=== PATIENT | male | born 1960 | race Caucasian/White ===

== ENCOUNTER 2016-09-19 19:00 | Inpatient (IN) | payer OTHER ==
--- NOTE | ~2016-09-19 | HP ---
Unit #: [id number] #: [id number] Patient: GAURANG LAWRENCE [id number] [facility] [address] [place] [address] [id number] MR#: [id number] NAME: GAURANG LAWRENCE ROOM: P184 Age: 56 Sex: M Admission Date: 09/19/2016 : 1960 Attending Physician: Christiano Alvarez M.D. Admitting Physician: Christiano Alvarez M.D. Primary Care Physician: Generic Doctor Not In System HISTORY AND PHYSICAL HISTORY OF PRESENT ILLNESS Gaurang is a 56-year-old male admitted on 09/19/2016 to [facility] for detox from alcohol. PAST MEDICAL HISTORY None. PAST SURGICAL HISTORY Right knee meniscus surgical repair, right ankle surgical repair after a fracture and left sided lymphectomy to rule out lymphoma. SOCIAL HISTORY No tobacco use. Does report binge alcohol use and occasional cocaine use. He is currently and living with his friend. FAMILY HISTORY Noncontributory. REVIEW OF SYSTEMS CONSTITUTIONAL: No fever or chills. HEENT: Denies any sore throat, ear pain or runny nose. CARDIOVASCULAR: Denies chest pain, irregular heart rhythm or palpitations. CHEST: Denies shortness of breath or cough. No hemoptysis. GASTROINTESTINAL: Denies nausea, vomiting, diarrhea or chronic constipation. ENDOCRINE: Denies history of increased thirst or urination. No recent significant weight loss or gain. GENITOURINARY: Denies dysuria, frequency, or hematuria. SKIN: Denies any rashes. HEMATOLOGIC: Denies history of increased bleeding or bruising. MUSCULOSKELETAL: Denies any hot, swollen joints. No generalized muscle pain. NEUROLOGIC: Denies problems with vision or speech. No frequent, severe headaches. No numbness, tingling or weakness in any extremities. Denies loss of bladder or bowel control. CURRENT MEDICATIONS None. ALLERGIES None. PHYSICAL EXAMINATION Unit #: [id number] #: [id number] Patient: GAURANG LAWRENCE GENERAL: Alert, oriented, in no acute distress. VITAL SIGNS: Blood pressure 132/98, heart rate 83, respirations 18, temperature 98.8. HEIGHT: 6 foot 2 inches. WEIGHT: 224 pounds. SKIN: Warm and dry without rash or lesion. HEENT: Normocephalic. TMs not viewed. Oral and nasal passages clear. Conjunctivae clear. PERRLA. EOMs intact. NECK: Supple without lymphadenopathy or thyromegaly. HEART: Regular rate and rhythm without murmur. LUNGS: Clear. ABDOMEN: Soft, nontender, without masses or hepatosplenomegaly. : Not done. EXTREMITIES: No evidence of cyanosis, clubbing or edema. Moves all without focal deficit. NEUROLOGICAL: Grossly within normal limits. Cranial Nerves: II: Visual castillo are intact. III, IV AND : Extraocular movements are intact. Pupils are equal, round and reactive to light. V: Facial sensation is grossly normal. VII: Facial movements and expression are normal. VIII: Auditory acuity grossly intact. IX, X: Uvula is midline. Phonation is normal. XI: Patient shrugs shoulders and turns head normally. XII: Tongue protrudes in the midline. Sensory and Motor Function: Sensory and motor sensation is grossly normal. Motor: moves all extremities well. Coordination: Gait is normal. Deep Tendon Reflexes: Intact. IMPRESSION Psychiatric admission. RECOMMENDATIONS Psychiatric, per psychiatrist. MEDICAL: I see no contraindications to participating in facility's activities. MEDICAL PROGNOSIS Good. MEDICAL CONDITION Stable. Dictated by... Yung Mejia/lyndsey TD: 09/20/2016 21:59 JOB #: [id number] Unit #: [id number] #: [id number] Patient: GAURANG LAWRENCE HISTORY AND PHYSICAL Page 1 of 1 X YAQUELIN FOSS APRN X HISTORY AND PHYSICAL
--- NOTE | ~2016-09-19 | PN ---
Unit #: [id number] #: [id number] Patient: GAURANG LAWRENCE [id number] [facility] [address] [place] [address] [id number] MR#: [id number] NAME: GAURANG LAWRENCE ROOM: 84 Age: 56 Sex: M Admission Date: 09/19/2016 : 1960 Attending Physician: Christiano Alvarez M.D. Admitting Physician: Christiano Alvarez M.D. Primary Care Physician: Generic Doctor Not In System [facility] PROGRESS NOTES DATE 09/22/2016 DISCUSSION The patient is abed resting comfortably today. He offers no new complaints and his detox continues uneventfully. We are looking at early week discharge. Dictated by... Christiano Alvarez M.D. IRAJ/alysia TD: 09/22/2016 17:32 JOB #: [id number] [facility] PROGRESS NOTES Page 1 of 1 X Christiano Alvarez MD X PROGRESS NOTE
--- NOTE | ~2016-09-19 | PN ---
Unit #: [id number] #: [id number] Patient: GAURANG LAWRENCE [id number] [facility] [address] [place] [address] [id number] MR#: [id number] NAME: GAURANG LAWRENCE ROOM: P184 Age: 56 Sex: M Admission Date: 09/19/2016 : 1960 Attending Physician: Christiano Alvarez M.D. Admitting Physician: Christiano Alvarez M.D. Primary Care Physician: Generic Doctor Not In System [facility] PROGRESS NOTES DATE 09/21/2016 DISCUSSION The patient complains that he continues to feel "rough" related to his alcohol detox. I have encouraged him to increase his participation within the therapeutic milieu. He is requesting re-initiation of Adderall but I have explained to the patient that given his admitted abuse of alcohol and cocaine that he is not a candidate for this medication at this time. Dictated by... Christiano Alvarez M.D. CB/alysia TD: 09/21/2016 22:23 JOB #: [id number] [facility] PROGRESS NOTES Page 1 of 1 X Christiano Alvarez MD X PROGRESS NOTE
--- NOTE | ~2016-09-19 | PN ---
Unit #: [id number] #: [id number] Patient: GAURANG LAWRENCE [id number] [facility] [address] [place] [address] [id number] I MR#: [id number] NAME: GAURANG LAWRENCE ROOM: [facility] Age: 56 Sex: M Admission Date: 09/19/2016 : 1960 Attending Physician: Christiano Alvarez M.D. Admitting Physician: Christiano Alvarez M.D. Primary Care Physician: Rober Doctor Not In System [facility] PROGRESS NOTES DATE 09/23/2016 DISCUSSION The patient's detox continues uneventfully. He is expressing interest in residential chemical dependence treatment. I have discussed the possibility of residential chemical dependence treatment with the patient during today's interview. We will continue current treatment and expect discharge within the next day or so. Dictated by... Christiano Alvarez M.D. IRAJ/lyndsey TD: 09/24/2016 23:05 JOB #: [id number] [facility] PROGRESS NOTES Page 1 of 1 X Christiano Alvarez MD X PROGRESS NOTE
--- NOTE | ~2016-09-19 | PN ---
Unit #: [id number] #: [id number] Patient: GAURANG LAWRENCE [id number] [facility] [address] [place] [address] [id number] MR#: [id number] NAME: GAURANG LAWRENCE ROOM: 84 Age: 56 Sex: M Admission Date: 09/19/2016 : 1960 Attending Physician: Christiano Alvarez M.D. Admitting Physician: Christiano Alvarez M.D. Primary Care Physician: Generic Doctor Not In System [facility] PROGRESS NOTES DATE 09/22/2016 DISCUSSION The patient is resting comfortably today and offers no new complaints. Staff reports no management issues. We continue the patient's current detoxification protocol and expect early week discharge. Dictated by... Christiano Alvarez M.D. CB/alysia TD: 09/22/2016 17:30 JOB #: [id number] [facility] PROGRESS NOTES Page 1 of 1 X Christiano Alvarez MD X PROGRESS NOTE
--- NOTE | ~2016-09-19 | DS ---
Unit #: [id number] #: [id number] Patient: GAURANG LAWRENCE [id number] [facility] [address] [place] [address] [id number] I MR#: [id number] NAME: GAURANG LAWRENCE ROOM: [facility] Age: 56 Sex: M Admission Date: 09/19/2016 : 1960 Discharge Date: 09/24/2016 Attending Physician: Christiano Alvarez M.D. Primary Care Physician: Generic Doctor Not In System DISCHARGE SUMMARY REASON FOR ADMISSION The patient is a 56-year-old white male, admitted with increasing alcohol and cocaine use. HOSPITAL COURSE The patient was admitted to the [facility] unit and placed on routine detoxification protocol for alcohol. His participation within the therapeutic milieu was less than optimal, but his detox went uneventfully. The patient requested re-initiation of previously prescribed "Ativan and Adderall," but it was explained to the patient that these medications would not be indicated in the patient with his extensive substance abuse history. He was understanding of this. He had made arrangements to go to [facility] in [place], [place], and requested discharge on 09/24/2016, it was so ordered. FINAL DIAGNOSES Alcohol use disorder; cocaine use disorder; mood disorder, unspecified. DISPOSITION ON DISCHARGE The patient is discharged on no psychotropic or other medications. FOLLOWUP Followup will take place through the auspices of "[facility]." PROGNOSIS The patient's prognosis is considered fair. Dictated by... Christiano Alvarez M.D. CB/ruyl TD: 09/25/2016 03:04 JOB #: [id number] Unit #: [id number] #: [id number] Patient: GAURANG LAWRENCE DISCHARGE SUMMARY Page 1 of 1 X Christiano Alvarez MD X DISCHARGE SUMMARY
--- NOTE | ~2016-09-19 | PA ---
Unit #: [id number] #: [id number] Patient: GAURANG LAWRENCE [id number] [facility] [address] [place] [address] [id number] I MR#: [id number] NAME: GAURANG LAWRENCE ROOM: 84 Age: 56 Sex: M Admission Date: 09/19/2016 : 1960 Date of Assessment: 09/20/2016 Attending Physician: Christiano Alvarez M.D. Admitting Physician: Christiano Alvarez M.D. Primary Care Physician: Generic Doctor Not In System PSYCHIATRIC ASSESSMENT IDENTIFYING INFORMATION The patient is a 56-year-old white male admitted with increasing alcohol and cocaine use. CHIEF COMPLAINT "I have to quit." INFORMANT(S) Patient, reliability is fair. HISTORY OF PRESENT ILLNESS The patient is a 56-year-old white male admitted to the [address] [place] [address] complaining of increasing abuse of alcohol and cocaine use. Last hospitalized at this facility in February of 2015 and states that he maintained sobriety for approximately 6 months thereafter, but then began using. He is now living with a woman who sells cocaine and has been using cocaine as well as alcohol. He was presently unemployed. The patient reports that he has no income and has lost his family secondary to his ongoing abuse of alcohol and cocaine. The patient reported passive suicidal ideation at the time of admission as he did in 2014 on admission. PAST PSYCHIATRIC HISTORY As noted previously, the patient was last hospitalized at this facility in 2014 under similar circumstances. PAST MEDICAL HISTORY Noncontributory. MEDICATIONS The patient reports that he is prescribed Vyvanse, Wellbutrin, Lexapro, and Adderall through the auspices of the [facility]. ALLERGIES None reported. FAMILY HISTORY Noncontributory. SOCIAL HISTORY The patient lives with his girlfriend. He is not presently employed. He did complete college. MENTAL STATUS EXAMINATION Unit #: [id number] #: [id number] Patient: GAURANG LAWRENCE Examination at this time reveals the patient to be a well-developed well-nourished white male appearing stated age. He is in no apparent physical distress at the time of the examination. He is awake, alert, and oriented in all spheres. His mood is dysphoric, his affect constricted. Speech is generally well-coherent. There are no gross deficits in memory or cognition noted. Intelligence is judged to be in the average range based on fund of knowledge. The patient is cooperative throughout the interview. He is currently endorsing passive suicidal ideation. He denies homicidal ideation. He denies any psychotic symptoms. His judgment and insight appear to be intact. ASSETS AND LIABILITIES The patient's assets: Motivation for change. Liabilities: Lack of resources. DIAGNOSTIC IMPRESSION 1. Alcohol use disorder. 2. Cocaine use disorder. 3. Mood disorder unspecified. TREATMENT PLAN The patient remains hospitalization for safety and stabilization. We will initiate routine detoxification protocol for alcohol. I will not at this point reinitiate any medications for the patient. The patient is expressing interest in residential chemical dependence treatment, and I will ask the social work associate to see him regarding this potential disposition plan. ESTIMATED LENGTH OF STAY 5 to 7 days. Dictated by... Christiano Alvarez M.D. IRAJ/dee TD: 09/20/2016 14:47 JOB #: [id number] PSYCHIATRIC ASSESSMENT Page 1 of 1 X Christiano Alvarez MD X PSYCHIATRIC ASSESSMENT
[2016-09-20 09:51] LABS: BASOPHIL# 0.1 X10e3 (0-0.3); BASOPHIL% 0.9 % (0-2.5); EOSINOPHIL# 0.2 X10e3 (0-0.7); EOSINOPHIL% 2.3 % (0.0-7.0); HEMATOCRIT 45.5 % (38.0-50.0); HEMOGLOBIN 15.4 gm/dL (13.0-16.0); LYMPHOCYTE# 2.3 X10e3 (1.0-3.5); LYMPHOCYTE% 34.7 % (17.0-45.0); MEAN CELL VOLUME 90.6 FL (83-96); MEAN CORPUSCULAR HEMOGLOBIN 30.7 PG (28-34); MEAN CORPUSCULAR HGB CONC 33.9 g/dL (30-36); MEAN PLATELET VOLUME 6.8 FL (6.5-11.5); MONOCYTE# 0.6 X10e3 (0-1.0); MONOCYTE% 8.7 % (3.0-12.0); NEUTROPHIL# 3.6 X10e3 (1.5-7.1); NEUTROPHIL% 53.4 % (40-75); PLATELET COUNT 316 X10e3 (140-420); RED BLOOD COUNT 5.02 X10e (3.90-5.60); RED CELL DISTRIBUTION WIDTH 12.9 % (11.0-15.5); WHITE BLOOD COUNT 6.7 X10e3 (4.0-10.5)
[2016-09-20 10:18] LABS: ALBUMIN SERUM 4.5 g/dL (3.5-5.0); BILIRUBIN,TOTAL 0.7 mg/dL (0.2-2.0); BUN/CREATININE RATIO 11.66; CALCIUM SERUM 9.9 mg/dL (8.4-10.2); CREATININE SERUM 1.2 mg/dL (0.6-1.4); GLOM FILT RATE Estimated 68.2 mL/min (>60); POTASSIUM 5.2 mmol/L (3.5-5.1); PROTEIN TOTAL SERUM 7.8 g/dL (6.0-8.3)
[2016-09-20 10:22] LABS: URINE APPEARANCE CLEAR; URINE BILIRUBIN NEG (NEG); URINE BLOOD NEG (NEG); URINE COLOR YELLOW; URINE GLUCOSE NEG (NEG); URINE KETONE NEG (NEG); URINE LEUKOCYTE ESTERASE NEG (NEG); URINE NITRATE NEG (NEG); URINE PH 6.5 (5-8); URINE PROTEIN NEG (NEG); URINE SPECIFIC GRAVITY 1.003 (1.003-1.035); URINE UROBILINOGEN 0.2 MG/DL (NEG)
[2016-09-20 10:33] LABS: DIFF IND NO
[2016-09-20 10:50] LABS: AMPHETAMINE NEG (NEG); BARBITURATES NEG (NEG); BENZODIAZEPINES NEG (NEG); COCAINE POS (NEG); MARIJUANA NEG (NEG); OPIATES NEG (NEG); TRICYCLIC ANTIDEPRESSANTS NEG (NEG); U METHADONE NEG (NEG)
[2016-09-20 11:42] LABS: THYROID STIMULATING HORMONE 5.06 uIU/ml (0.34-5.60)
[2016-09-20 11:49] LABS: FREE THYROXIN (T4) 0.67 ng/dL (0.58-1.64)
== END 2016-09-24 16:20 | disposition home or self-care (01) | DRG 897 ==
LOC: P1E 21:37
PROVIDERS: Specialist
PROC: HZ2ZZZZ Detoxification Services for Substance Abuse Treatment (ICD-10-PCS; principal; 2016-09-20)
DX: F10.10 Alcohol abuse, uncomplicated (principal); F14.10 Cocaine abuse, uncomplicated; F39 Unspecified mood [affective] disorder
CPT/HCPCS: 80053; 80307; 81003; 84439; 84443; 85025